=== PATIENT | male | born 1965 | race Caucasian/White ===

== ENCOUNTER 2024-03-22 12:57 | Observation (INO) ==
[2024-03-22 13:32] LABS: ABS Basophils 0.1 10^3/uL (0.0-0.1); ABS Eosinophils 0.2 10^3/uL (0.0-0.5); ABS Lymphocytes 1.9 10^3/uL (1.0-4.8); ABS Monocytes 0.6 10^3/uL (0.0-1.1); ABS Neutrophils 5.8 10^3/uL (1.5-7.6); ABS Nucleated RBC 0.01 10^3/ul; Eosinophil % 1.9 %; Hematocrit 41.3 % (38-53); Hemoglobin 13.4 g/dL (13.2-16.3); Lymphocyte % 22.4 %; Mean Corpuscular Hemoglobin 26.5 pg (27-33); Mean Corpuscular Hgb Conc 32.3 g/dL (31-36); Nucleated Red Blood Cells % 0.1 %/100WBC (0.0-0.8); Platelet Count 256 10^3/uL (150-450); Red Blood Count 5.04 10^6/uL (4.06-5.63); Red Cell Distribution Width 16.4 % (12-17); White Blood Count 8.6 10^3/uL (3.6-10.2)
[2024-03-22 13:44] LABS: Activated Partial Thrombo Time 37.3 seconds (26.0-38.0); INR 1.21 (0.85-1.14)
[2024-03-22 14:20] LABS: Albumin 4.1 g/dL (3.2-5.2); Albumin/Globulin Ratio 1.4 (1-3); Calcium 9.2 mg/dL (8.6-10.3); Creatinine, Serum 0.86 mg/dL (0.67-1.17); Globulin 2.9 g/dL (2-4); Potassium 4.2 mmol/L (3.5-5.0); Total Bilirubin 0.5 mg/dL (0.2-1.0); eGFR CKD-EPI 99.1 (>60)
[2024-03-22 14:54] LABS: High Sensitivity Troponin 1 Hr 16 pg/mL (<20)
[2024-03-22] MEDS: Morphine 4 MG/ML VIAL (1 ml) IV ONE (15:44)
[2024-03-22] MEDS ORDERED: Sulfur Hexaflouride MICROSPHR 25 MG VIAL IV PRN (18:11)
[2024-03-22] MEDS ORDERED: Enoxaparin 40 MG/0.4 ML SYR SUBCUT SCH (19:00)
[2024-03-22 19:04] LABS: Urine Appearance Clear; Urine Bilirubin Negative (Negative); Urine Blood Negative (Negative); Urine Color Light-Yellow; Urine Glucose Negative (Negative); Urine Ketones Negative (Negative); Urine Nitrite Negative (Negative); Urine Protein 2+ (>=100 mg/dL) (Negative); Urine Specific Gravity >1.050 (1.002-1.030); Urine Urobilinogen Negative (Negative)
[2024-03-22 19:14] LABS: Urine Bacteria Absent /HPF (Absent); Urine Red Blood Cell Trace(0-2/hpf) /HPF (0-Trace); Urine White Blood Cell Trace(0-5/hpf) /HPF (0-Trace)
[2024-03-22] MEDS ORDERED: Albuterol HFA INHALER 8 gm MDI INH PRN (20:00)
[2024-03-22] MEDS ORDERED: Dextrose 50% Syringe 50 ml 25 GM/50 ML SYRINGE IV PUSH PRN (20:56)
[2024-03-22] MEDS: Insulin GLARGINE 100 un/ml 10 ml VIAL SUBCUT SCH (22:36)
[2024-03-22] MEDS: Enoxaparin 40 MG/0.4 ML SYR SUBCUT SCH (22:50)
[2024-03-22] MEDS: Midazolam 2 mg/2 ml VIAL 1 mg/ml 2 ml VIAL (2 mg) IV SLOW PU ONE (22:52)
[2024-03-22] MEDS: DULoxetine DR 60 mg CAP PO SCH (23:31)
[2024-03-23] MEDS ORDERED: HYDROmorphone 0.5 MG/0.5 ML SYRINGE IV SLOW PU PRN (00:41)
[2024-03-23] MEDS: Morphine 2 MG/ML SYRINGE IV PRN (01:16)
[2024-03-23 06:19] LABS: ABS Basophils 0.1 10^3/uL (0.0-0.1); ABS Eosinophils 0.2 10^3/uL (0.0-0.5); ABS Lymphocytes 1.6 10^3/uL (1.0-4.8); ABS Monocytes 0.6 10^3/uL (0.0-1.1); ABS Neutrophils 8.4 10^3/uL (1.5-7.6); ABS Nucleated RBC 0.01 10^3/ul; Eosinophil % 2.3 %; Hematocrit 38.6 % (38-53); Hemoglobin 12.9 g/dL (13.2-16.3); Lymphocyte % 14.9 %; Mean Corpuscular Hemoglobin 27.5 pg (27-33); Mean Corpuscular Hgb Conc 33.5 g/dL (31-36); Mean Corpuscular Volume 82.1 fL (80-97); Mean Platelet Volume 7.8 fL (7.5-11.2); Nucleated Red Blood Cells % 0.1 %/100WBC (0.0-0.8); Platelet Count 237 10^3/uL (150-450); Red Cell Distribution Width 16.4 % (12-17); White Blood Count 10.9 10^3/uL (3.6-10.2)
[2024-03-23 06:46] LABS: Calcium 8.7 mg/dL (8.6-10.3); Magnesium 1.8 mg/dL (1.9-2.7); Potassium 4.1 mmol/L (3.5-5.0); eGFR CKD-EPI 86.2 (>60)
[2024-03-23 09:36] VITALS: BP 147/67
[2024-03-23] MEDS: COVID VAC 24-25 (12+) (Moderna) Syringe 0.5 mL IM ONE (11:49)
[2024-03-23] MEDS: Influenza Vaccine *TRI* 2024-25* 0.5 ML SYRINGE IM ONE (11:56)
== END 2024-03-23 12:40 | disposition home or self-care (01) ==
LOC: EDHOLD 12:57 → ED 12:57 → SUATTDRO 22:19 → MEDTELE 23:16
PROVIDERS: ADMIT Internal Medicine; ATTEND Student in an Organized Health Care Education/Training Program